=== PATIENT | male | born 1975 | race African-American/Black ===

== ENCOUNTER → 2020-04-24 | Outpatient (CLI) | payer BC, OTHER ==
[~2020-04-24] MED LIST: AMLODIPINE BESY10 MG PO; DICLOFENAC SODI75 MG PO; GLIMEPIRIDE4 MG PO; JANUVIA100 MG PO; METFORMIN HCL1000 MG PO; ZESTORETIC 20-1 EAC3 PO; ZOCOR 10 MG TAB10 M1 PO
== END ==
LOC: LAB 14:52
PROVIDERS: ATTEND Orthopaedic Surgery Sports Medicine
DX: Z01.812 Encounter for preprocedural laboratory examination (principal); Z20.828 Contact with and (suspected) exposure to other viral communicable diseases